=== PATIENT | male | born 1980 | race African-American/Black ===

== ENCOUNTER 2019-12-26 | Emergency (ER) | payer MEDICAID ==
[2019-12-26] MEDS ORDERED: BACTRIM1 TAB PO (12:49)
[2019-12-26] MEDS ORDERED: DESCOVY 200-251 TAB (12:49)
[2019-12-26] MEDS ORDERED: COVARYX PO (12:50)
[2019-12-26 13:13] LABS: URINE BILIRUBIN - DIPSTICK NEGATIVE (NEGATIVE); URINE BLOOD DIPSTICK LARGE (NEGATIVE); URINE COLOR YELLOW; URINE GLUCOSE - DIPSTICK NEGATIVE (NEGATIVE); URINE KETONE NEGATIVE (NEGATIVE); URINE LEUK ESTERASE NEGATIVE (NEGATIVE); URINE NITRITE - DIPSTICK NEGATIVE (Negative); URINE PH 6.5 (4.5-8.0); URINE PROTEIN - DIPSTICK NEGATIVE (NEG-TRACE); URINE UROBILINOGEN - DIPSTICK 0.2 E.U./dL (0.2)
[2019-12-26 13:21] LABS: URINE RBC 50-100 RBC/hpf (0-5)
[2019-12-26 13:22] LABS: URINE BACTERIA FEW hpf; URINE SQUAMOUS EPITHELIAL CELL FEW EPI/hpf (0-FEW)
[2019-12-26] MEDS ORDERED: CIPROFLOXACN500 MG PO (13:51)
== END 2019-12-26 14:18 | disposition home or self-care (01) ==
DX: N39.0 Urinary tract infection, site not specified (principal); F17.210 Nicotine dependence, cigarettes, uncomplicated; Z21 Asymptomatic human immunodeficiency virus [HIV] infection status

== ENCOUNTER 2019-12-30 | Emergency (ER) | payer MEDICAID ==
[~2019-12-30] MED LIST: BACTRIM1 TAB PO; CIPROFLOXACN500 MG PO; COVARYX PO; DESCOVY 200-251 TAB
[2019-12-30 16:29] LABS: HEMATOCRIT 42.8 % (39.0-50.0); HEMOGLOBIN 14.4 g/dl (14.0-18.0); IMMATURE GRANULOCYTES 0.3 % (0.0-5.0); MEAN CELL VOLUME 86.6 fL CALC (80.0-100.0); MEAN CORPUSCULAR HGB 29.1 pG CALC (26.0-32.0); MEAN CORPUSCULAR HGB CONC 33.6 g/L CALC (32.0-36.0); NEUT# 4.68 thou/uL (1.82-7.42); RED BLOOD COUNT 4.94 mill/uL (4.70-6.10); RED CELL DISTRI WIDTH 15.2 % (11.5-15.5)
[2019-12-30 16:56] LABS: ANION GAP 16 (6-22 (CALC)); BUN 21 mg/dL (9-20); BUN/CREATININE RATIO 15 (12-20 (CALC)); CARBON DIOXIDE 23 mmol/l (22-30); CHLORIDE 97 mmol/l (95-108); CREATININE 1.4 mg/dL (0.7-1.3); GFR 56 ML/MIN (>=60 (CALC)); GFR FOR AFR.AMER. > 60 ML/MIN (>=60 (CALC)); SODIUM 132 mmol/l (137-146)
[2019-12-30] MEDS ORDERED: TAM75CAP PO ×2 (16:56)
[2019-12-31] MEDS ORDERED: TORADOL PO (04:18)
== END 2019-12-30 17:42 | disposition home or self-care (01) ==
PROVIDERS: Family Medicine
DX: J11.1 Influenza due to unidentified influenza virus with other respiratory manifestations (principal); F17.210 Nicotine dependence, cigarettes, uncomplicated; Z21 Asymptomatic human immunodeficiency virus [HIV] infection status

== ENCOUNTER 2019-12-31 | Emergency (ER) | payer MEDICAID ==
[~2019-12-31] MED LIST changes: +TAM75CAP PO
[2019-12-31] MEDS ORDERED: TORADOL PO (04:18)
== END 2019-12-31 04:51 | disposition home or self-care (01) ==
DX: J11.1 Influenza due to unidentified influenza virus with other respiratory manifestations (principal); F17.210 Nicotine dependence, cigarettes, uncomplicated; T37.5X6A Underdosing of antiviral drugs, initial encounter; Z91.120 Patient's intentional underdosing of medication regimen due to financial hardship; Z21 Asymptomatic human immunodeficiency virus [HIV] infection status

== ENCOUNTER 2020-01-02 09:59 | Observation (INO) | payer MEDICAID ==
[~2020-01-02] VITALS: Ht 170.2 cm; Wt 64.0 kg
[~2020-01-02 09:59] MED LIST changes: +TORADOL PO
[2020-01-02 10:33] LABS: HEMATOCRIT 39.4 % (39.0-50.0); HEMOGLOBIN 13.6 g/dl (14.0-18.0); IMMATURE GRANULOCYTES 0.5 % (0.0-5.0); MEAN CORPUSCULAR HGB CONC 34.5 g/L CALC (32.0-36.0); NEUT# 3.27 thou/uL (1.82-7.42); RED BLOOD COUNT 4.69 mill/uL (4.70-6.10); RED CELL DISTRI WIDTH 14.6 % (11.5-15.5)
[2020-01-02 10:56] LABS: ALBUMIN 4.2 g/dL (3.2-5.0); ALKALINE PHOSPHATASE 77 u/l (38-126); ANION GAP 15 (6-22 (CALC)); BILIRUBIN, TOTAL 0.4 mg/dL (0.0-1.4); BUN 16 mg/dL (9-20); BUN/CREATININE RATIO 15 (12-20 (CALC)); CARBON DIOXIDE 23 mmol/l (22-30); CHLORIDE 95 mmol/l (95-108); GFR > 60 ML/MIN (>=60 (CALC)); GFR FOR AFR.AMER. > 60 ML/MIN (>=60 (CALC)); POTASSIUM 4.4 mmol/l (3.5-5.1); SGOT/AST 36 u/l (17-59); SODIUM 128 mmol/l (137-146); TOTAL PROTEIN 8.6 g/dL (6.3-8.2)
[2020-01-02 15:50] VITALS: BP 90/52
[2020-01-02 19:32] VITALS: BP 89/46
[2020-01-02 20:30] LABS: URINE BILIRUBIN - DIPSTICK NEGATIVE (NEGATIVE); URINE BLOOD DIPSTICK NEGATIVE (NEGATIVE); URINE COLOR YELLOW; URINE GLUCOSE - DIPSTICK NEGATIVE (NEGATIVE); URINE KETONE NEGATIVE (NEGATIVE); URINE LEUK ESTERASE NEGATIVE (NEGATIVE); URINE NITRITE - DIPSTICK NEGATIVE (Negative); URINE PROTEIN - DIPSTICK NEGATIVE (NEG-TRACE); URINE SPECIFIC GRAVITY 1.015; URINE UROBILINOGEN - DIPSTICK 0.2 E.U./dL (0.2)
[2020-01-03 00:01] VITALS: BP 79/40
[2020-01-03 01:19] VITALS: BP 95/52
[2020-01-03 03:30] VITALS: BP 85/45
[2020-01-03 04:40] VITALS: BP 91/63
[2020-01-03 05:37] LABS: ANION GAP 9 (6-22 (CALC)); BUN 10 mg/dL (9-20); BUN/CREATININE RATIO 13 (12-20 (CALC)); CARBON DIOXIDE 24 mmol/l (22-30); CHLORIDE 103 mmol/l (95-108); CREATININE 0.7 mg/dL (0.7-1.3); GFR > 60 ML/MIN (>=60 (CALC)); GFR FOR AFR.AMER. > 60 ML/MIN (>=60 (CALC)); POTASSIUM 5.1 mmol/l (3.5-5.1); SODIUM 131 mmol/l (137-146)
[2020-01-03 05:51] LABS: HEMATOCRIT 37.5 % (39.0-50.0); HEMOGLOBIN 12.6 g/dl (14.0-18.0); IMMATURE GRANULOCYTES 0.5 % (0.0-5.0); MEAN CELL VOLUME 86.4 fL CALC (80.0-100.0); MEAN CORPUSCULAR HGB CONC 33.6 g/L CALC (32.0-36.0); NEUT# 1.71 thou/uL (1.82-7.42); RED BLOOD COUNT 4.34 mill/uL (4.70-6.10); RED CELL DISTRI WIDTH 15.6 % (11.5-15.5)
[2020-01-03 08:00] VITALS: BP 96/65
[2020-01-03] MEDS ORDERED: LEVAQUIN750 MG PO ×2 (11:28)
== END 2020-01-03 14:50 | disposition home or self-care (01) ==
LOC: ED 09:59 → ED-I 11:10 → ED 11:30 → ED-I 11:31 → MS2 14:57
PROVIDERS: Family Medicine; Nurse Practitioner Family; ADMIT Internal Medicine; ATTEND Internal Medicine
DX: J11.00 Influenza due to unidentified influenza virus with unspecified type of pneumonia (principal); Z21 Asymptomatic human immunodeficiency virus [HIV] infection status; F17.210 Nicotine dependence, cigarettes, uncomplicated
CPT/HCPCS: G0378; J0692

== ENCOUNTER 2020-06-26 01:16 | Emergency (ER) | payer OTHER ==
[~2020-06-26] VITALS: Ht 170.2 cm; Wt 72.0 kg
[~2020-06-26 01:16] MED LIST changes: +LEVAQUIN750 MG PO
[2020-06-26] MEDS ORDERED: LIDOCAINE21 PO (02:08)
[2020-06-26 04:22] VITALS: BP 115/68
== END 2020-06-26 04:22 | disposition home or self-care (01) ==
LOC: ED 01:16
DX: T18.128A Food in esophagus causing other injury, initial encounter (principal); J45.909 Unspecified asthma, uncomplicated; F17.210 Nicotine dependence, cigarettes, uncomplicated; X58.XXXA Exposure to other specified factors, initial encounter; Z21 Asymptomatic human immunodeficiency virus [HIV] infection status
CPT/HCPCS: J1610

== ENCOUNTER 2020-10-24 11:57 | Emergency (ER) | payer OTHER ==
[~2020-10-24] VITALS: Ht 170.2 cm; Wt 80.0 kg
[~2020-10-24 11:57] MED LIST changes: -DESCOVY 200-251 TAB; +DESCOVY 200-251 TAB PO; +LIDOCAINE21 PO
[2020-10-24] MEDS ORDERED: [UNRECOGNIZED DRUG - OTHER] PO (12:20)
[2020-10-24] MEDS ORDERED: BACTRIM DS1 TAB PO (12:21)
[2020-10-24] MEDS ORDERED: TRAMADOL HYDROC50 M1 PO (12:54)
[2020-10-24 13:10] VITALS: BP 128/83
[2020-10-24] MEDS ORDERED: PREZCOBIX 800-11 TAB PO (13:21)
[2020-10-24] MEDS ORDERED: MEDROXYPROGESTE10 MG PO (13:24)
[2020-10-24] MEDS ORDERED: ESTRADIOL1 MG PO (13:25)
[2020-10-24] MEDS ORDERED: SPIRONOLACTONE50 MG PO (13:26)
== END 2020-10-24 13:10 | disposition home or self-care (01) ==
LOC: ED 11:57
DX: S90.121A Contusion of right lesser toe(s) without damage to nail, initial encounter (principal); S93.504A Unspecified sprain of right lesser toe(s), initial encounter; J45.909 Unspecified asthma, uncomplicated; F17.200 Nicotine dependence, unspecified, uncomplicated; W22.09XA Striking against other stationary object, initial encounter; Z21 Asymptomatic human immunodeficiency virus [HIV] infection status

== ENCOUNTER 2022-06-22 15:49 | Emergency (ER) | payer OTHER ==
[~2022-06-22] VITALS: Ht 170.2 cm; Wt 65.9 kg
[~2022-06-22 15:49] MED LIST changes: +BACTRIM DS1 TAB PO; +ESTRADIOL1 MG PO; +MEDROXYPROGESTE10 MG PO; +PREZCOBIX 800-11 TAB PO; +SPIRONOLACTONE50 MG PO; +TRAMADOL HYDROC50 M1 PO; +[UNRECOGNIZED DRUG - OTHER] PO
[2022-06-22 16:18] VITALS: BP 105/77
[2022-06-22] MEDS ORDERED: SYMTUZA 800-1501 TAB (16:27)
[2022-06-22 16:30] VITALS: BP 107/76
[2022-06-22 16:45] VITALS: BP 105/75
[2022-06-22] MEDS ORDERED: PAXLOVID PO (16:52)
[2022-06-22 16:54] VITALS: BP 105/75
== END 2022-06-22 16:59 | disposition home or self-care (01) ==
LOC: ED 15:49
DX: U07.1 COVID-19 (principal); J02.9 Acute pharyngitis, unspecified; R51.9 Headache, unspecified; J45.909 Unspecified asthma, uncomplicated; F17.200 Nicotine dependence, unspecified, uncomplicated; Z21 Asymptomatic human immunodeficiency virus [HIV] infection status

== ENCOUNTER 2022-07-26 11:57 | Emergency (ER) | payer OTHER ==
[2022-07-26] VITALS (8 sets, daily range): BP systolic 85–137; BP diastolic 65–100
[~2022-07-26] VITALS: Ht 170.2 cm; Wt 66.0 kg
[~2022-07-26 11:57] MED LIST changes: +PAXLOVID PO; +SYMTUZA 800-1501 TAB
[2022-07-26 12:38] LABS: HEMATOCRIT 41.8 % (37.0-47.0); HEMOGLOBIN 14.1 g/dl (12.0-16.0); IMMATURE GRANULOCYTES 0.3 % (0.0-5.0); MEAN CELL VOLUME 92.5 fL CALC (80.0-100.0); MEAN CORPUSCULAR HGB 31.2 pG CALC (26.0-32.0); MEAN CORPUSCULAR HGB CONC 33.7 g/dL CAL (32.0-36.0); NEUT# 1.93 thou/uL (2.00-7.15); RED BLOOD COUNT 4.52 mill/uL (4.20-5.60); RED CELL DISTRI WIDTH 14.6 % (11.5-15.5)
[2022-07-26 13:04] LABS: ALBUMIN 4.5 g/dL (3.2-5.0); BILIRUBIN, TOTAL 0.4 mg/dL (0.0-1.4); CREATININE 1.2 mg/dL (0.5-1.0); POTASSIUM 3.7 mmol/l (3.5-5.1); TOTAL PROTEIN 8.5 g/dL (6.3-8.2)
[2022-07-26] MEDS ORDERED: FLEET ENEMA SIX PACK RE (15:01)
[2022-07-26] MEDS ORDERED: MIRALAX17 GM/SCOO PO (15:01)
== END 2022-07-26 15:24 | disposition home or self-care (01) ==
LOC: ED 11:57 → EDSEX 12:21 → ED 15:24
PROVIDERS: Nurse Practitioner
DX: K59.00 Constipation, unspecified (principal); F17.200 Nicotine dependence, unspecified, uncomplicated; J45.909 Unspecified asthma, uncomplicated; Z21 Asymptomatic human immunodeficiency virus [HIV] infection status; Z80.0 Family history of malignant neoplasm of digestive organs

== ENCOUNTER 2022-11-03 16:17 | Emergency (ER) | payer OTHER ==
[~2022-11-03] VITALS: Ht 170.2 cm; Wt 65.9 kg
[~2022-11-03 16:17] MED LIST changes: +FLEET ENEMA SIX PACK RE; +MIRALAX17 GM/SCOO PO
[2022-11-03 17:13] LABS: BASO% 0.8 % (0-3); EOS% 5.7 % (0-8); LYMPH% 41.4 % (15-41); MEAN CELL VOLUME 93.7 fL CALC (80.0-100.0); MEAN CORPUSCULAR HGB 30.5 pG CALC (26.0-32.0); MEAN CORPUSCULAR HGB CONC 32.5 g/dL CAL (32.0-36.0); MONO% 14.2 % (2-13); NEUT# 1.79 thou/uL (1.82-7.42); NEUT% 37.9 % (42-76); RED BLOOD COUNT 3.94 mill/uL (4.70-6.10); RED CELL DISTRI WIDTH 14.8 % (11.5-15.5)
[2022-11-03 17:15] LABS: HEMATOCRIT 36.9 % (39.0-50.0)
[2022-11-03 17:25] LABS: ALKALINE PHOSPHATASE 91 u/l (38-126); ANION GAP 8 (6-22 (CALC)); BUN 12 mg/dL (9-20); BUN/CREATININE RATIO 12 (12-20 (CALC)); CARBON DIOXIDE 33 mmol/l (22-30); CHLORIDE 104 mmol/l (95-108); GFR FOR AFR.AMER. > 60 ML/MIN (>=60 (CALC)); GFR OTHER RACES > 60 ML/MIN (>=60 (CALC)); POTASSIUM 4.5 mmol/l (3.5-5.1); SGOT/AST 23 u/l (17-59); SODIUM 141 mmol/l (137-146); TOTAL PROTEIN 7.7 g/dL (6.3-8.2)
[2022-11-03 17:30] LABS: ALBUMIN 3.9 g/dL (3.2-5.0); BILIRUBIN, TOTAL 0.2 mg/dL (0.0-1.4)
[2022-11-03] MEDS ORDERED: BACTRIM DS1 TAB PO (21:41)
[2022-11-03 22:44] VITALS: BP 101/68
== END 2022-11-03 22:44 | disposition home or self-care (01) ==
LOC: ED 16:17
PROVIDERS: Family Medicine
DX: N61.0 Mastitis without abscess (principal); J45.909 Unspecified asthma, uncomplicated; F17.200 Nicotine dependence, unspecified, uncomplicated; N60.02 Solitary cyst of left breast; N60.01 Solitary cyst of right breast; Z98.82 Breast implant status; Z21 Asymptomatic human immunodeficiency virus [HIV] infection status
CPT/HCPCS: Q9967

== ENCOUNTER 2023-05-31 17:35 | Emergency (ER) | payer OTHER | END 2023-05-31 19:31 | disposition home or self-care (01) | DRG 951 | LOC: ED 17:35 → LWOBS 18:58 → ED 18:58 → LWOBS 19:31 | DX: Z53.21 Procedure and treatment not carried out due to patient leaving prior to being seen by health care provider (principal) ==

== ENCOUNTER 2023-08-21 03:51 | Emergency (ER) | payer BC, OTHER ==
[~2023-08-21] VITALS: Ht 170.2 cm; Wt 77.0 kg
[2023-08-21 05:40] LABS: URINE BILIRUBIN - DIPSTICK Negative (NEGATIVE); URINE BLOOD DIPSTICK Trace-intact (NEGATIVE); URINE CLARITY Slightly Cloudy; URINE GLUCOSE - DIPSTICK Negative (NEGATIVE); URINE KETONE Negative (NEGATIVE); URINE LEUK ESTERASE Trace (Negative); URINE NITRITE - DIPSTICK Negative (Negative); URINE PROTEIN - DIPSTICK Negative (NEG-TRACE); URINE UROBILINOGEN - DIPSTICK 0.2 E.U./dL (0.2)
[2023-08-21 05:42] LABS: URINE COLOR Yellow
[2023-08-21 06:14] LABS: ALBUMIN 3.4 g/dL (3.2-5.0); ALKALINE PHOSPHATASE 105 u/l (38-126); ANION GAP 10 (6-22 (CALC)); BILIRUBIN, TOTAL 0.4 mg/dL (0.2-1.3); BUN 14 mg/dL (9-20); BUN/CREATININE RATIO 14 (12-20 (CALC)); CARBON DIOXIDE 28 mmol/l (22-30); CHLORIDE 104 mmol/l (95-108); GFR FOR AFR.AMER. > 60 ML/MIN (>=60 (CALC)); GFR OTHER RACES > 60 ML/MIN (>=60 (CALC)); SGOT/AST 40 u/l (17-59); SODIUM 138 mmol/l (137-146); TOTAL PROTEIN 7.8 g/dL (6.3-8.2)
[2023-08-21 06:54] VITALS: BP 106/70
[2023-08-21 07:00] VITALS: BP 114/74
[2023-08-21 07:54] LABS: BASO% 0.5 % (0-3); EOS% 3.9 % (0-8); HEMATOCRIT 35.3 % (39.0-50.0); HEMOGLOBIN 11.1 g/dl (14.0-18.0); IMMATURE GRANULOCYTES 0.1 % (0.0-5.0); LYMPH% 20.5 % (15-41); MEAN CELL VOLUME 88.9 fL CALC (80.0-100.0); MEAN CORPUSCULAR HGB CONC 31.4 g/dL CAL (32.0-36.0); MONO% 8.2 % (2-13); NEUT# 4.95 thou/uL (1.82-7.42); NEUT% 66.8 % (42-76); RED BLOOD COUNT 3.97 mill/uL (4.70-6.10); RED CELL DISTRI WIDTH 13.8 % (11.5-15.5)
[2023-08-21] MEDS ORDERED: OMNI-PAC300 MG PO (09:28)
[2023-08-21 09:32] VITALS: BP 114/74
== END 2023-08-21 09:50 | disposition home or self-care (01) | DRG 601 ==
LOC: ED 03:51
PROVIDERS: Family Medicine
DX: N63.20 Unspecified lump in the left breast, unspecified quadrant (principal)
CPT/HCPCS: Q9967

== ENCOUNTER 2023-12-25 19:41 | Emergency (ER) | payer BC, OTHER ==
[~2023-12-25] VITALS: Ht 170.2 cm; Wt 65.7 kg
[~2023-12-25 19:41] MED LIST changes: +OMNI-PAC300 MG PO
[2023-12-25] MEDS ORDERED: SODIUM CHLORIDE 0.9% 1,000 ML IV ONE (21:00)
[2023-12-25 22:12] LABS: ALBUMIN 3.9 g/dL (3.2-5.0); ALKALINE PHOSPHATASE 95 u/l (38-126); AMYLASE 76 u/l (30-110); ANION GAP 11 (6-22 (CALC)); BILIRUBIN, TOTAL 0.3 mg/dL (0.2-1.3); BUN 11 mg/dL (9-20); BUN/CREATININE RATIO 14 (12-20 (CALC)); CARBON DIOXIDE 27 mmol/l (22-30); CHLORIDE 103 mmol/l (95-108); CREATININE 0.8 mg/dL (0.7-1.3); GFR FOR AFR.AMER. > 60 ML/MIN (>=60 (CALC)); GFR OTHER RACES > 60 ML/MIN (>=60 (CALC)); POTASSIUM 3.6 mmol/l (3.5-5.1); SGOT/AST 27 u/l (17-59); SODIUM 138 mmol/l (137-146); TOTAL PROTEIN 8.6 g/dL (6.3-8.2)
[2023-12-26] MEDS ORDERED: Pantoprazole Sodium 40 MG VIAL (Protonix) IV ONE (00:35)
[2023-12-26] MEDS ORDERED: ONDANSETRON HCl 4 MG/2 ML SDV IV ONE (00:35)
[2023-12-26] MEDS ORDERED: SULFAMETHOXAZOLE W/TRIMETHOPRI 1 COMBO TAB PO ONE (00:35)
[2023-12-26] MEDS ORDERED: BACTRIM DS1 TAB PO (01:04)
[2023-12-26] MEDS ORDERED: DESCOVY 200-251 TAB PO (01:04)
[2023-12-26] MEDS ORDERED: ZOFRAN4 MG/TAB PO (01:04)
[2023-12-26 02:18] VITALS: BP 116/68
== END 2023-12-26 02:33 | disposition home or self-care (01) | DRG 392 ==
LOC: ED 19:41
PROVIDERS: Family Medicine
DX: K52.9 Noninfective gastroenteritis and colitis, unspecified (principal); Z21 Asymptomatic human immunodeficiency virus [HIV] infection status; J45.909 Unspecified asthma, uncomplicated; T37.5X6A Underdosing of antiviral drugs, initial encounter; Z91.128 Patient's intentional underdosing of medication regimen for other reason; F17.210 Nicotine dependence, cigarettes, uncomplicated
CPT/HCPCS: S0164